=== PATIENT | male | born 1995 | race Caucasian/White ===

== ENCOUNTER 2021-10-14 14:22 | Emergency (ER) | payer OTHER ==
[~2021-10-14] VITALS: Ht 182.8 cm; Wt 111.1 kg
[2021-10-14] MEDS ORDERED: NAPROSYN500 MG PO (17:06)
== END 2021-10-14 17:11 | disposition home or self-care (01) ==
LOC: ED 14:22
DX: S46.911A Strain of unspecified muscle, fascia and tendon at shoulder and upper arm level, right arm, initial encounter (principal); X50.0XXA Overexertion from strenuous movement or load, initial encounter; Y93.89 Activity, other specified; Y92.89 Other specified places as the place of occurrence of the external cause; Y99.8 Other external cause status